=== PATIENT | female | born 1995 | race Hispanic/Latino ===

== ENCOUNTER 2023-11-09 09:11 | Emergency (ER) | payer OTHER, SELFPAY ==
--- NOTE | ~2023-11-09 | CT_ITS ---
CT of the Abdomen and Pelvis: Indication: Abdominal pain Technique: 2.5 mm axial scans were obtained through the abdomen and pelvis following intravenous adm inistration of 100 cc of Omnipaque 350. Dose reduction technique was used on this scan by utilizing a utomated exposure control and iterative reconstruction technique. The dose-length product (DLP) was 3 37.46 mGy-cm. Findings: Scans through the lung bases are unremarkable. The liver, spleen, pancreas, gallbladder, adrenals and kidneys are within normal limits. No evidence of aortic aneurysm. No lymphadenopathy. No bowel obstruction or bowel wall thickening. There is no evidence to suggest acute appendicitis. Images through the pelvis were performed. Urinary bladder unremarkable. IUD in place. 4 cm left ovari an cyst present. No ascites. Impression: 4 cm left ovarian cyst. IUD in place. Reviewed, dictated and finalized at [facility]. [employer] Impression: 4 cm left ovarian cyst. IUD in place.
--- NOTE | ~2023-11-09 | US_ITS ---
Limited Abdominal Sonogram: Real-time sonographic imaging of the right upper quadrant was performed. Clinical History: Right upper quadrant pain Findings: The liver appears normal with no evidence of mass lesion or bile duct dilatation. Main por kayla vein demonstrates normal direction of flow. The gallbladder is well distended, and appears normal with no evidence of gallstone or wall thickening. The common bile duct measures 3 mm. The visualize d pancreas, aorta, and IVC are unremarkable. Impression: No significant abnormality seen. Reviewed, dictated and finalized at location . [employer] Impression: No significant abnormality seen.
[2023-11-09 09:15] VITALS: BP 99/67; PULSE 60; RESP 16; TEMP 37.2; O2SAT 100
[2023-11-09 10:58] LABS: Basophils Percent Auto 0.3 % (0.2-1.2); Eosinophils Absolute Auto 0.2 K/mm3 (0-0.3); Eosinophils Percent Auto 2.2 % (0-4.4); Hematocrit 40.7 % (37.0-47.0); Immature Granulocyte Absolute 0.06 K/mm3 (0.00-0.031); Immature Granulocyte Percent A 0.6 % (0-0.5); Lymphocytes Absolute Auto 2.71 K/mm3 (0.9-3.2); Lymphocytes Percent Auto 29.3 % (18.3-44.2); Mean Corpuscular HGB Conc 31.9 g/dl (32-36); Mean Corpuscular Hemoglobin 30.5 pg (26-34); Mean Corpuscular Volume 95.5 fl (80-100); Mean Platelet Volume 9.6 fl (7.4-10.4); Monocytes Absolute Auto 0.8 K/mm3 (0.1-0.6); Monocytes Percent Auto 8.2 % (2.6-8.5); Neutrophils Absolute Auto 5.5 K/mm3 (1.3-6.7); Neutrophils Percent Auto 59.4 % (45.5-73.1); Platelet Count Result 349 k/mm3 (150-375); Red Blood Count 4.26 M/mm3 (4.2-5.4); Red Cell Distribution Width 11.9 % (11.5-14.5); White Blood Count 9.3 K/mm3 (4.5-10.0)
--- NOTE | 2023-11-09 11:04 | ECG_ITS ---
Measurements Intervals [place] Rate: 64 P: 43 [place]: 169 QRS: 38 QRSD: 86 T: 36 QT: 415 QTc: 431 Interpretive Statements SINUS RHYTHM NO PREVIOUS ECG AVAILABLE FOR COMPARISON Electronically Signed On 11-09-2023 15:49:40 CITY CLERK by Bren Burrows M.D.
--- NOTE | 2023-11-09 11:06 | ED.ABDPAIN ---
HPI - Abdominal Pain General Chief Complaint: Abdominal Pain Stated Complaint: ABD PAIN X4D Time Seen by Provider: 11/09/23 10:33 History of Present Illness HPI narrative: 28-year-old Kazakh-speaking female reports for evaluation for abdominal pain x4 days. Patient reports pain in her epigastrium, right upper quadrant, left upper quadrant and periumbilical region. States it has been constant but she has had some relief with naproxen. She denies aggravating or alleviating factors including eating. States last night the pain became more severe around 7:00 p.m.. She had a sausage Toradol around 6:00 p.m. for dinner. States at 12:00 a.m. she was having difficulty sleeping secondary to pain. Last bowel movement was yesterday and normal. LMP 10/03/2023. She denies dysuria, urinary frequency urgency, vaginal discharge or concern for STDs, fevers, nausea vomiting, diarrhea. Prior abdominal surgeries include hernia repair 5 years ago. Related Data Allergies Allergy/AdvReac Type Severity Reaction Status Date / Time No Known Allergies Allergy Verified 11/09/23 09:13 Review of Systems Review of Systems: CONSTITUTIONAL: Denies fever, chills, or sweats. EYES: Denies visual changes, redness, or discharge. ENT: Denies rhinorrhea, congestion, sore throat, or otalgia. CARDIOVASCULAR: Denies chest pain, palpitations, or edema. RESPIRATORY: Denies cough or dyspnea. GASTROINTESTINAL: See HPI GENITOURINARY: Denies dysuria or hematuria. SKIN: Denies rash or itching. MUSCULOSKELETAL: Denies back pain, joint pain, or myalgia. NEUROLOGIC: Denies headache, numbness, or weakness. PSYCHIATRIC: Denies anxiety or depression. Exam Narrative: GENERAL: Well-appearing, well-nourished, and in no acute distress. HEAD: Normocephalic, atraumatic. EYES: PERRLA and EOMI. ENT: Nares clear, no rhinorrhea or epistaxis. Mucous membranes moist. NECK: Supple. CHEST: Clear to auscultation. No respiratory distress. HEART: Regular rate and rhythm. No murmur heard. Normal peripheral pulses. ABDOMEN: normoactive bowel sounds. Abdomen soft with tenderness in the periumbilical region, epigastrium, right upper quadrant left upper quadrant. Guarding in the right upper quadrant. No rebound or rigidity. No CVA tenderness. EXTREMITIES: Normal range of motion. No edema. SKIN: Warm, dry, no rash. NEURO: No focal deficits. Alert and oriented x3 Course Vital Signs Vital signs: Vital Signs Temperature 99 F 11/09/23 09:15 Pulse Rate 60 11/09/23 09:15 Respiratory Rate 16 11/09/23 09:15 Blood Pressure 99/67 L 11/09/23 09:15 Pulse Oximetry 100 11/09/23 09:15 Oxygen Delivery Room Air 11/09/23 09:15 Temperature 99 F 11/09/23 09:15 Pulse Rate 63 11/09/23 13:50 Respiratory Rate 15 11/09/23 13:50 Blood Pressure 101/67 11/09/23 13:50 Pulse Oximetry 100 11/09/23 13:50 Oxygen Delivery Room Air 11/09/23 09:15 MDM - Abdominal Pain MDM Narrative Medical decision making narrative: 28-year-old female presents to the ER for abdominal pain x4 days. See HPI for further history. Triage vital significant for mild hypotension of 99/67, otherwise unremarkable. She is afebrile. Exam is significant for the above. CBC is without leukocytosis or anemia. Chemistries are unremarkable. UA with 3+ leuk esterase and 11-20 wbc's. Lipase normal. Lactic acid normal. Ultrasound of the right upper quadrant is unremarkable. CT abdomen pelvis shows IUD in place. There is also evidence of a 4 cm left ovarian cyst. Patient is not having any pain in the lower abdomen, no tenderness over the left lower quadrant or suprapubic region. I do not feel a ultrasound is needed at this time but did discuss signs, symptoms and return precautions for ovarian torsion. Labs and imaging discussed with the patient. She received IV fluids and Pepcid with improvement. Suspect gastritis. Will start her on Pepcid as well as Keflex for possible UTI
[2023-11-09 11:11] LABS: Alanine Aminotransferase 31 U/L (6-35); Albumin Level 4.4 g/dL (3.5-5.1); Alkaline Phosphatase 94 U/L (38-126); Anion Gap 8 mmol/L (8-16); Aspartate Amino Transferase 33 U/L (14-36); Bilirubin,Total 0.8 mg/dL (0.2-1.3); Blood Urea Nitrogen 9 mg/dL (7-17); Calcium 9.4 mg/dL (8.4-10.2); Carbon Dioxide 26 mmol/L (22-30); Chloride 103 mmol/L (98-107); Estimated Glomerular Filt Rate > 60; Glucose 83 mg/dL (65-110); Lipase 91 U/L (23-300); Sodium 137 mmol/L (137-145)
[2023-11-09 11:27] LABS: Appearance Urine Cloudy (Clear); Bacteria Urine Rare /hpf; Bilirubin Urine Negative (Negative); Blood Urine Trace (Negative); Color Urine Yellow (Yellow); Glucose Urine UA Negative (Negative); Ketones Urine Negative (Negative); Leukocyte Esterase Ur 3+ LEU/UL (Negative); Nitrate Urine Negative (Negative); Non Pathogenic Casts 0-2; Protein Urine Negative (Negative); RBC Urine 0-2 /hpf (0-2); Specific Grav Ur 1.008 (1.001-1.035); Squamous Epithelial Cell Urine Few /hpf (Few); Urobilinogen Urine 0.2 mg/dL (<2.0); pH Urine 6.5 (5.0-9.0)
[2023-11-09] MEDS: SODIUM CHLORIDE 0.9% IV 1,000 ML 999 ML IV CONT (11:32)
[2023-11-09] MEDS: FAMOTIDINE 20 MG/2 ML VIAL IV PUSH (11:32)
[2023-11-09 11:34] LABS: Add Urine Microscopic? YES
[2023-11-09 13:50] VITALS: BP 101/67; PULSE 63; RESP 15; O2SAT 100
== END 2023-11-09 13:51 | disposition home or self-care (01) ==
PROVIDERS: Preventive Medicine Aerospace Medicine; Emergency Provider Physician Assistant
DX: N83.201 Unspecified ovarian cyst, right side (principal); R10.13 Epigastric pain; R82.998 Other abnormal findings in urine; Z97.5 Presence of (intrauterine) contraceptive device
CPT/HCPCS: 36415; 74177; 76705; 80053; 81001; 81025; 83605; 83690; 85025; 87086; 87088; 93005; 96374; 99284; J7030; Q9967